=== PATIENT | male | born 2000 ===

== ENCOUNTER 2022-10-11 21:53 | Emergency (ER) | payer MEDICAID, OTHER ==
[2022-10-11] MEDS ORDERED: Propranolol 20 MG Tab PO ONE (22:42)
[2022-10-11] MEDS ORDERED: Diazepam 2 MG Tab PO ONE (22:43)
[2022-10-11 23:36] VITALS: BP 124/84; PULSE 97
== END 2022-10-11 23:36 | disposition home or self-care (01) ==
LOC: MW.ED 21:53
DX: F40.9 Phobic anxiety disorder, unspecified (principal)
CPT/HCPCS: 93005; 99283; A9270

== ENCOUNTER 2023-02-12 23:49 | Emergency (ER) | payer BC, MEDICAID ==
[2023-02-12 23:56] VITALS: BP 158/90; PULSE 84
[2023-02-13] MEDS ORDERED: Ibuprofen 600 MG Tab PO ONE (01:18)
== END 2023-02-13 01:32 | disposition home or self-care (01) ==
LOC: MW.ED 23:49
DX: M71.21 Synovial cyst of popliteal space [Baker], right knee (principal)
CPT/HCPCS: 93971; 99283; A9270